=== PATIENT | male | born 1970 | race Two or more races ===

== ENCOUNTER 2021-02-22 11:18 | Inpatient (IN) | payer OTHER ==
[~2021-02-22] VITALS: Ht 182.9 cm; Wt 76.7 kg
--- NOTE | 2021-02-22 11:50 | NUR ---
BIB BY [facility] FROM HOME ([facility]). FOUND APNEIC/PULSELESS NAKED IN THE BATH TUB WITH . CPR INITIATED FOR 6 MINUTES UNTIL ROSC. NO NEURO FUNCTION APPRECIATED. BROUGHT TO [facility] WHERE HE WAS INTUBATED (THEY USED ETOMIDATE/DANA OUT OF HABIT-NO NEURO RESPONSE), HE WAS GIVEN 6 DOSES OF NARCAN WHICH IMPROVED APNEA (DID NOT IMPROVE NEURO FUNCTION). ON ARRIVAL NOT BREATHING OVER THE VENT (7.5/24 AT THE LIP), HR 73, 147/98 ZERO GAG OR CORNEAL REFLEX, TEMP OF 29.1. ERP TO BEDSIDE TO WARM BUT ONLY TO ARTIC PROTOCOL RANGE
--- NOTE | 2021-02-22 11:55 | NUR ---
KENAN HUGGER APPLIED FOR 29 DEGREES
--- NOTE | 2021-02-22 12:10 | NUR ---
ERP MADE AWARE OF CRITICAL PH/BASE EXCESS LEVEL/PAO2/FSBS
--- NOTE | 2021-02-22 12:40 | NUR ---
DR. FAULKNER TO BEDSIDE TO PROVIDE ORDERS. 2 AMP OF BICARB/1L OF NS ADMINISTERED IMMEDIATELY ARTIC SUN PADS APPLIED MACHINE PROVIDED WITH CCU
[2021-02-22] MEDS ORDERED: SODIUM BICARBONATE 1 MEQ/ML, 50ML VIAL ONE (12:50)
--- NOTE | 2021-02-22 13:26 | NUR ---
PATIENT BEING RE-WARMED VIA ARTIC SUN AT SLOW RATE LAB AT BEDSIDE FOR FULL SET OF LABS INCLUDING BLOOD CULTURES X2, URINE ANALYSIS
[2021-02-22] MEDS ORDERED: SODIUM BICARB 8.4%, 50ML SYRINGE IVPush ONE ×3 (13:30→16:00)
--- NOTE | 2021-02-22 13:34 | NUR ---
REPEAT NEURO EXAM (NO SEDATION AT ALL SINCE INTUBATION 4 HOURS AGO) NO GAG, NO CORNEAL REFLEX, FALCCID EXTREMITIES, UNREACTIVE 1MM PUPILS
[2021-02-22 13:40] LABS: MEAN CORPUSCULAR HEMOGLOBIN 34.6 pg (27.5-34.5); MEAN CORPUSCULAR HGB CONC 34.3 g/dL (33.2-36.2); MEAN PLATELET VOLUME 7.2 fL (7.4-10.4); PLATELET COUNT 302 x10^3/uL (130-400); RED BLOOD COUNT 5.48 x10^6/uL (4.38-5.82)
[2021-02-22 13:45] LABS: MICROSCOPIC INDICATED
[2021-02-22 13:51] LABS: AMPHETAMINE SCREEN, URINE Positive (Negative); BARBITURATE SCREEN, URINE Negative (Negative); BENZODIAZEPINE SCREEN, URINE Negative (Negative); CANNABINOID SCREEN, URINE Negative (Negative); COCAINE SCREEN, URINE Negative (Negative); METHADONE SCREEN, URINE Negative (Negative); OPIATE SCREEN, URINE Negative (Negative)
[2021-02-22] MEDS ORDERED: SODIUM CHLORIDE 0.9% 1,000ML IVBOLUS ONE ×2 (14:00→17:30)
--- NOTE | 2021-02-22 14:02 | NUR ---
TASK RN NOTE: PT BACK FROM IMAGING. BACK ON ALL MONITORS INCLUDING END TIDAL CO2. PT IS NSR ON SEGMENT BLOCK LAYER RATE 70'S WITH NO ECTOPY. SET UP COMPLETE FOR ART LINE AND CENTRAL LINE PER MD MUSTAFA'S INSTRUCTIONS.
--- NOTE | 2021-02-22 14:05 | NUR ---
TO CT (HEAD)
[2021-02-22 14:10] LABS: BAND#(MANUAL) 3.78 x10^3/uL; BANDS%(MANUAL) 22 % (0-7); LYMPH#(MANUAL) 0.69 x10^3/uL (1-3.4); LYMPHS% (MANUAL) 4 % (22-44); MONOS#(MANUAL) 0.69 x10^3/uL (0.3-2.7); MONOS% (MANUAL) 4 % (2-9); SEG#(MANUAL) 12.04 x10^3/uL (1.8-6.8); SEGS% (MANUAL) 70 % (42-75)
[2021-02-22 14:11] LABS: <PLATELET ESTIMATE> ADEQUATE; <PLT MORPHOLOGY> NORMAL PLT MORPH; ANISOCYTOSIS 1+
[2021-02-22 15:17] LABS: ALANINE AMINOTRANSFERASE 437 U/L (12-78); ALBUMIN 3.3 g/dL (3.4-5.0); ANION GAP 10 mmol/L (5-15); CALCIUM 7.1 mg/dL (8.5-10.1); CHLORIDE 108 mmol/L (98-107)
[2021-02-22 15:24] LABS: ALKALINE PHOSPHATASE 135 U/L (45-117); BILIRUBIN,TOTAL 0.9 mg/dL (0.2-1.0); CREATININE 2.21 mg/dL (0.7-1.3); TOTAL PROTEIN 7.6 g/dL (6.4-8.2)
--- NOTE | 2021-02-22 15:27 | NUR ---
MD MUSTAFA IN ROOM, PUT IN ART LINE AND CENTRAL LINE
[2021-02-22 15:30] LABS: TROPONIN I 0.159 ng/mL (0.000-0.045)
--- NOTE | 2021-02-22 15:53 | NUR ---
RECEIVED CALL FROM LAB FOR CRITICAL POTASSIUM OF 6.6. ERP MADE AWARE. EKG OBTAINED- TO ADMIN HYPERKALEMIA MEDS TEMP IMPROVED TO 33 DEGRESS CELCIUS-STABLE ON ARTIC SUN B/P DOWN TREANDING TO 90'S/50- BID MANAGER MADE AWARE- SHE WOULD LIKE TO HAVE LEVOPHED READY
[2021-02-22] MEDS ORDERED: DEXTROSE 50%, 50ML SYRINGE IVPush ONE (16:00)
[2021-02-22] MEDS ORDERED: INSULIN REGULAR 100 UNITS/ML, 3ML VIAL IVPush ONE (16:00)
[2021-02-22] MEDS ORDERED: CALCIUM CHLORIDE 10%, 10ML SYR IVPush ONE (16:00)
--- NOTE | 2021-02-22 16:03 | NUR ---
WITH SUCTIONING PATIENT NOW WITH GAG, MOVING EYES DR. FAULKNER MADE AWARE
[2021-02-22] MEDS ORDERED: SODIUM BICARB 8.4%, 50ML SYRINGE ONE (16:15)
[2021-02-22] MEDS ORDERED: INSULIN SINGLE DOSE, ER ONE (16:15)
[2021-02-22] MEDS ORDERED: PROPOFOL 100 ML IV ONE (16:15)
[2021-02-22] MEDS ORDERED: CALCIUM CHLORIDE 10%, 10ML SYR ONE (16:15)
[2021-02-22] MEDS ORDERED: DEXTROSE 50%, 50ML SYRINGE ONE (16:15)
[2021-02-22 16:20] LABS: ALBUMIN 3.1 g/dL (3.4-5.0); ANION GAP 7 mmol/L (5-15); CALCIUM 6.8 mg/dL (8.5-10.1); CHLORIDE 110 mmol/L (98-107); CREATININE 2.17 mg/dL (0.7-1.3)
[2021-02-22] MEDS: PROPOFOL 100 ML IV PRN (17:00)
[2021-02-22] MEDS: CEFTRIAXONE 1,000 MG in DEXTROSE 5% 50 ML IVPB SCH (17:00)
--- NOTE | 2021-02-22 17:07 | NUR ---
POST HYPERKALEMIA MED FSBS 191 PATIENT WITH LARGE LOOSE BM. FULL BED BATH AND LINEN CHANGE
[2021-02-22] MEDS ORDERED: SENNA/DOCUSATE TABLET NG PRN (18:00)
[2021-02-22] MEDS ORDERED: BISACODYL 10 MG SUPP PR PRN (18:00)
[2021-02-22] MEDS ORDERED: LACTULOSE 20 GM/30 ML UDC NG PRN (18:00)
[2021-02-22] MEDS ORDERED: PHARMACY MAY ADJ FOR RENAL FX MC SCH (18:00)
[2021-02-22] MEDS ORDERED: LIDOCAINE-MPF 1%, 2ML ENDO PRN (18:00)
[2021-02-22] MEDS ORDERED: SENNA 176 MG/5 ML ORAL SOL NG PRN (18:00)
[2021-02-22] MEDS ORDERED: GLUCAGON 1 MG IM PRN (18:00)
[2021-02-22] MEDS: HEPARIN 5,000 UNITS/ML, 1ML SQ SCH (18:29)
[2021-02-22] MEDS: METRONIDAZOLE PMX 500MG/100ML 100 ML IV SCH (18:29)
[2021-02-22] MEDS ORDERED: NOREPINEPHRINE 8 MG in SODIUM CHLORIDE 0.9% 242 ML IV PRN (18:30)
[2021-02-22 18:40] LABS: TRIGLYCERIDES 79 mg/dL (50-200)
[2021-02-22 18:43] LABS: TROPONIN I 0.325 ng/mL (0.000-0.045)
[2021-02-22] MEDS: SODIUM BICARBONATE 8.4% 150 MEQ in DEXTROSE 5% 1,000 ML IV SCH (18:44)
[2021-02-22 22:53] VITALS: BP 100/61
[2021-02-22 22:59] LABS: ANION GAP 8 mmol/L (5-15); CALCIUM 7.2 mg/dL (8.5-10.1); CHLORIDE 109 mmol/L (98-107); CREATININE 2.48 mg/dL (0.7-1.3)
[2021-02-23] MEDS: SODIUM BICARBONATE 8.4% 150 MEQ in DEXTROSE 5% 1,000 ML IV SCH ×4 (02:43→23:55)
[2021-02-23] MEDS: HEPARIN 5,000 UNITS/ML, 1ML SQ SCH ×3 (02:45→19:02)
[2021-02-23] MEDS: METRONIDAZOLE PMX 500MG/100ML 100 ML IV SCH ×3 (02:45→19:00)
[2021-02-23 03:37] LABS: BASOPHILS % (AUTO) 0 % (0-1); EOSINOPHILS % (AUTO) 0 % (1-7); LYMPHOCYTES % (AUTO) 6 % (22-44); MEAN PLATELET VOLUME 7.6 fL (7.4-10.4); MONOCYTES % (AUTO) 8 % (2-9); NEUTROPHILS % (AUTO) 86 % (42-75); PLATELET COUNT 261 x10^3/uL (130-400); RED BLOOD COUNT 5.11 x10^6/uL (4.38-5.82); RED CELL DISTRIBUTION WIDTH 13.1 % (9.4-14.8)
[2021-02-23 03:54] LABS: ALANINE AMINOTRANSFERASE 602 U/L (12-78); ALBUMIN 2.1 g/dL (3.4-5.0); ANION GAP 9 mmol/L (5-15); CALCIUM 6.9 mg/dL (8.5-10.1); CHLORIDE 109 mmol/L (98-107); CREATININE 3.25 mg/dL (0.7-1.3)
[2021-02-23 04:21] LABS: ALKALINE PHOSPHATASE 90 U/L (45-117); BILIRUBIN,TOTAL 0.4 mg/dL (0.2-1.0); TOTAL PROTEIN 5.5 g/dL (6.4-8.2)
[2021-02-23 05:08] LABS: CREATINE KINASE, TOTAL > 102000 U/L (39-308)
[2021-02-23] MEDS ORDERED: SODIUM CHLORIDE 0.9% 1,000ML IVBOLUS ONE (08:00)
[2021-02-23] MEDS ORDERED: FUROSEMIDE 100 MG/10 ML IV ONE (09:00)
[2021-02-23] MEDS: PANTOPRAZOLE 40 MG IV IVPush SCH (09:53)
[2021-02-23] MEDS ORDERED: FENTANYL PF 100 MCG/2ML IVPush ONE (10:30)
[2021-02-23] MEDS ORDERED: FENTANYL PF 100 MCG/2ML ONE (11:51)
[2021-02-23 14:01] LABS: ANION GAP 8 mmol/L (5-15); CALCIUM 6.8 mg/dL (8.5-10.1); CHLORIDE 105 mmol/L (98-107); CREATININE 4.32 mg/dL (0.7-1.3)
[2021-02-23] MEDS: CEFTRIAXONE 1,000 MG in DEXTROSE 5% 50 ML IVPB SCH (17:56)
[2021-02-23] MEDS ORDERED: FENTANYL PF 1,000 MCG in SODIUM CHLORIDE 0.9% 80 ML IV PRN (18:00)
[2021-02-23] MEDS: PROPOFOL 100 ML IV PRN (22:07)
[2021-02-24] MEDS: HEPARIN 5,000 UNITS/ML, 1ML SQ SCH ×3 (03:19→18:11)
[2021-02-24] MEDS: METRONIDAZOLE PMX 500MG/100ML 100 ML IV SCH ×3 (03:19→20:34)
[2021-02-24 04:44] LABS: MEAN CORPUSCULAR HEMOGLOBIN 33.7 pg (27.5-34.5); MEAN CORPUSCULAR HGB CONC 35.1 g/dL (33.2-36.2); MEAN PLATELET VOLUME 7.7 fL (7.4-10.4); PLATELET COUNT 177 x10^3/uL (130-400); RED BLOOD COUNT 4.12 x10^6/uL (4.38-5.82); RED CELL DISTRIBUTION WIDTH 13.2 % (9.4-14.8)
[2021-02-24 04:53] LABS: ANION GAP 7 mmol/L (5-15); CALCIUM 6.6 mg/dL (8.5-10.1); CHLORIDE 99 mmol/L (98-107); CREATININE 4.39 mg/dL (0.7-1.3)
[2021-02-24 05:49] LABS: ANISOCYTOSIS 1+; BAND#(MANUAL) 0.72 x10^3/uL; BANDS%(MANUAL) 7 % (0-7); LYMPH#(MANUAL) 1.34 x10^3/uL (1-3.4); LYMPHS% (MANUAL) 13 % (22-44); MONOS#(MANUAL) 0.72 x10^3/uL (0.3-2.7); MONOS% (MANUAL) 7 % (2-9); REACTIVE LYMPHS % (MANUAL) 1 % (0-0); SEG#(MANUAL) 7.42 x10^3/uL (1.8-6.8); SEGS% (MANUAL) 72 % (42-75)
[2021-02-24] MEDS: SODIUM BICARBONATE 8.4% 150 MEQ in DEXTROSE 5% 1,000 ML IV SCH ×2 (05:50→14:39)
[2021-02-24 05:54] LABS: <PLATELET ESTIMATE> ADEQUATE; <PLT MORPHOLOGY> NORMAL PLT MORPH
[2021-02-24] MEDS: PANTOPRAZOLE 40 MG IV IVPush SCH (08:52)
[2021-02-24] MEDS: FENTANYL PF 100 MCG/2ML IVPush PRN (08:53)
[2021-02-24] MEDS: PROPOFOL 100 ML IV PRN (11:18)
--- NOTE | 2021-02-24 11:58 | NUR ---
TF per RD, Vital HP goal 70ml/hr ON propofol, 80ml/hr OFF propofol Addendum: 02/24/21 at [address] Amended: Links added.
[2021-02-24] MEDS: CEFTRIAXONE 1,000 MG in DEXTROSE 5% 50 ML IVPB SCH (16:26)
[2021-02-25] MEDS: PROPOFOL 100 ML IV PRN ×5 (00:01→20:53)
[2021-02-25] MEDS: SODIUM BICARBONATE 8.4% 150 MEQ in DEXTROSE 5% 1,000 ML IV SCH ×2 (02:38→14:45)
[2021-02-25] MEDS: HEPARIN 5,000 UNITS/ML, 1ML SQ SCH ×3 (02:49→18:05)
[2021-02-25] MEDS: METRONIDAZOLE PMX 500MG/100ML 100 ML IV SCH ×3 (04:34→19:27)
[2021-02-25 05:49] LABS: BASOPHILS % (AUTO) 0 % (0-1); EOSINOPHILS % (AUTO) 0 % (1-7); LYMPHOCYTES % (AUTO) 11 % (22-44); MEAN CORPUSCULAR HEMOGLOBIN 34.1 pg (27.5-34.5); MEAN CORPUSCULAR HGB CONC 35.3 g/dL (33.2-36.2); MEAN PLATELET VOLUME 7.4 fL (7.4-10.4); MONOCYTES % (AUTO) 5 % (2-9); NEUTROPHILS % (AUTO) 84 % (42-75); PLATELET COUNT 161 x10^3/uL (130-400); RED BLOOD COUNT 3.76 x10^6/uL (4.38-5.82); RED CELL DISTRIBUTION WIDTH 13.2 % (9.4-14.8)
[2021-02-25 05:58] LABS: ANION GAP 8 mmol/L (5-15); CALCIUM 6.8 mg/dL (8.5-10.1); CHLORIDE 98 mmol/L (98-107); CREATININE 5.74 mg/dL (0.7-1.3); TRIGLYCERIDES 156 mg/dL (50-200)
[2021-02-25] MEDS: FENTANYL PF 100 MCG/2ML IVPush PRN ×2 (07:42→12:25)
[2021-02-25] MEDS: PANTOPRAZOLE 40 MG IV IVPush SCH (08:30)
[2021-02-25] MEDS: MIDAZOLAM HCL 50 MG in SODIUM CHLORIDE 0.9% 40 ML IV PRN (13:12)
[2021-02-25] MEDS: CEFTRIAXONE 1,000 MG in DEXTROSE 5% 50 ML IVPB SCH (16:48)
[2021-02-26] MEDS: MIDAZOLAM HCL 50 MG in SODIUM CHLORIDE 0.9% 40 ML IV PRN ×2 (00:17→12:47)
[2021-02-26] MEDS: PROPOFOL 100 ML IV PRN ×4 (01:31→17:39)
[2021-02-26] MEDS: SODIUM BICARBONATE 8.4% 150 MEQ in DEXTROSE 5% 1,000 ML IV SCH (02:16)
[2021-02-26] MEDS: HEPARIN 5,000 UNITS/ML, 1ML SQ SCH ×3 (02:24→17:40)
[2021-02-26] MEDS: METRONIDAZOLE PMX 500MG/100ML 100 ML IV SCH ×3 (04:03→19:38)
[2021-02-26 04:29] LABS: BASOPHILS % (AUTO) 1 % (0-1); EOSINOPHILS % (AUTO) 1 % (1-7); LYMPHOCYTES % (AUTO) 10 % (22-44); MEAN CORPUSCULAR HGB CONC 35.3 g/dL (33.2-36.2); MEAN PLATELET VOLUME 7.6 fL (7.4-10.4); MONOCYTES % (AUTO) 7 % (2-9); NEUTROPHILS % (AUTO) 82 % (42-75); PLATELET COUNT 167 x10^3/uL (130-400); RED BLOOD COUNT 3.97 x10^6/uL (4.38-5.82); RED CELL DISTRIBUTION WIDTH 13.2 % (9.4-14.8)
[2021-02-26 04:46] LABS: CHLORIDE 97 mmol/L (98-107)
[2021-02-26 04:52] LABS: ANION GAP 9 mmol/L (5-15); CALCIUM 7.4 mg/dL (8.5-10.1); CREATININE 5.68 mg/dL (0.7-1.3)
[2021-02-26] MEDS: PANTOPRAZOLE 40 MG IV IVPush SCH (08:38)
[2021-02-26 10:50] LABS: ALBUMIN 1.7 g/dL (3.4-5.0)
[2021-02-26 10:57] LABS: BILIRUBIN, DIRECT 0.3 mg/dL (0.1-0.2); BILIRUBIN,INDIRECT 0.3 mg/dL (0.0-2.0); BILIRUBIN,TOTAL 0.6 mg/dL (0.2-1.0); TOTAL PROTEIN 5.2 g/dL (6.4-8.2)
[2021-02-26] MEDS: SODIUM CHLORIDE 0.9% 1,000 ML IV SCH ×2 (11:42→21:42)
[2021-02-26] MEDS: CEFTRIAXONE 1,000 MG in DEXTROSE 5% 50 ML IVPB SCH (16:38)
[2021-02-26 22:55] LABS: CHLORIDE,URINE RANDOM 91 mmol/L; POTASSIUM,URINE RANDOM 18 mmol/L; SODIUM,URINE RANDOM 103 mmol/L
[2021-02-26 22:58] LABS: MICROSCOPIC INDICATED
[2021-02-26 23:01] LABS: CREATININE,URINE RANDOM 55.6 mg/dL
[2021-02-27] MEDS: HEPARIN 5,000 UNITS/ML, 1ML SQ SCH ×3 (02:04→17:56)
[2021-02-27] MEDS: PROPOFOL 100 ML IV PRN ×4 (02:04→22:57)
[2021-02-27] MEDS: MIDAZOLAM HCL 50 MG in SODIUM CHLORIDE 0.9% 40 ML IV PRN (03:34)
[2021-02-27] MEDS: METRONIDAZOLE PMX 500MG/100ML 100 ML IV SCH ×3 (03:34→19:46)
[2021-02-27 04:00] LABS: MEAN CORPUSCULAR HEMOGLOBIN 33.9 pg (27.5-34.5); MEAN CORPUSCULAR HGB CONC 34.7 g/dL (33.2-36.2); MEAN PLATELET VOLUME 7.8 fL (7.4-10.4); PLATELET COUNT 163 x10^3/uL (130-400); RED BLOOD COUNT 3.96 x10^6/uL (4.38-5.82); RED CELL DISTRIBUTION WIDTH 13.1 % (9.4-14.8)
[2021-02-27 04:08] LABS: ALBUMIN 1.3 g/dL (3.4-5.0); ANION GAP 8 mmol/L (5-15); CALCIUM 7.3 mg/dL (8.5-10.1); CHLORIDE 99 mmol/L (98-107)
[2021-02-27 04:25] LABS: BAND#(MANUAL) 1.82 x10^3/uL; BANDS%(MANUAL) 17 % (0-7); LYMPH#(MANUAL) 0.64 x10^3/uL (1-3.4); LYMPHS% (MANUAL) 6 % (22-44); METAMYELOCYTES# (MANUAL) 0.11 x10^3/uL (0-0); METAMYELOCYTES% (MANUAL) 1 % (0-1); MONOS#(MANUAL) 0.43 x10^3/uL (0.3-2.7); MONOS% (MANUAL) 4 % (2-9); SEGS% (MANUAL) 72 % (42-75)
[2021-02-27 04:26] LABS: <PLATELET ESTIMATE> ADEQUATE; <PLT MORPHOLOGY> NORMAL PLT MORPH; ANISOCYTOSIS 1+
[2021-02-27 04:49] LABS: % IRON SATURATION 22 % (20-55); ALANINE AMINOTRANSFERASE 336 U/L (12-78); ALKALINE PHOSPHATASE 86 U/L (45-117); BILIRUBIN,TOTAL 0.5 mg/dL (0.2-1.0); CREATININE 7.36 mg/dL (0.7-1.3); IRON LEVEL 31 mcg/dL (65-175); TOTAL IRON BINDING CAPACITY 143 mcg/dL (250-450)
[2021-02-27 05:08] LABS: CREATINE KINASE, TOTAL 24916 U/L (39-308)
[2021-02-27] MEDS: SODIUM CHLORIDE 0.9% 1,000 ML IV SCH ×3 (05:11→20:54)
[2021-02-27] MEDS: PANTOPRAZOLE 40 MG IV IVPush SCH (09:27)
[2021-02-27] MEDS: CEFTRIAXONE 1,000 MG in DEXTROSE 5% 50 ML IVPB SCH (16:44)
[2021-02-28] MEDS: HEPARIN 5,000 UNITS/ML, 1ML SQ SCH ×3 (01:52→18:37)
[2021-02-28] MEDS: PROPOFOL 100 ML IV PRN (01:54)
[2021-02-28] MEDS: SODIUM CHLORIDE 0.9% 1,000 ML IV SCH (02:42)
[2021-02-28] MEDS: METRONIDAZOLE PMX 500MG/100ML 100 ML IV SCH ×2 (03:42→11:37)
[2021-02-28 03:43] LABS: BASOPHILS % (AUTO) 0 % (0-1); EOSINOPHILS % (AUTO) 1 % (1-7); LYMPHOCYTES % (AUTO) 8 % (22-44); MEAN CORPUSCULAR HEMOGLOBIN 33.8 pg (27.5-34.5); MEAN CORPUSCULAR HGB CONC 34.7 g/dL (33.2-36.2); MONOCYTES % (AUTO) 10 % (2-9); NEUTROPHILS % (AUTO) 81 % (42-75); PLATELET COUNT 168 x10^3/uL (130-400); RED BLOOD COUNT 3.61 x10^6/uL (4.38-5.82); RED CELL DISTRIBUTION WIDTH 12.9 % (9.4-14.8)
[2021-02-28 03:48] LABS: ALANINE AMINOTRANSFERASE 319 U/L (12-78); ALBUMIN 1.4 g/dL (3.4-5.0); ANION GAP 9 mmol/L (5-15); CALCIUM 7.6 mg/dL (8.5-10.1); CHLORIDE 104 mmol/L (98-107); CREATININE 6.68 mg/dL (0.7-1.3)
[2021-02-28 03:51] LABS: ALKALINE PHOSPHATASE 125 U/L (45-117); BILIRUBIN,TOTAL 0.5 mg/dL (0.2-1.0); TOTAL PROTEIN 4.8 g/dL (6.4-8.2); TRIGLYCERIDES 249 mg/dL (50-200)
[2021-02-28] MEDS: MIDAZOLAM HCL 50 MG in SODIUM CHLORIDE 0.9% 40 ML IV PRN ×2 (04:25→12:14)
[2021-02-28] MEDS: FENTANYL PF 100 MCG/2ML IVPush PRN ×2 (05:46→10:19)
[2021-02-28] MEDS: PANTOPRAZOLE 40 MG IV IVPush SCH (09:03)
[2021-02-28] MEDS ORDERED: FUROSEMIDE 20 MG/2 ML ONE (10:27)
[2021-02-28] MEDS: FUROSEMIDE 40 MG/4 ML IV SCH ×2 (10:30→21:59)
[2021-02-28] MEDS ORDERED: PHARMACY MAY ADJ FOR RENAL FX MC PRN (18:00)
[2021-02-28] MEDS: PIPERACILLIN/TAZO 2.25 GM in DEXTROSE 5% 50 ML IV SCH (21:07)
[2021-02-28] MEDS: LINEZOLID PMX 600MG/300ML 300 ML IV SCH (21:59)
[2021-02-28] MEDS ORDERED: LORazepam 2 MG/ML, 1ML ONE (22:30)
[2021-02-28] MEDS ORDERED: LORazepam 2 MG/ML, 1ML IVPush ONE (22:30)
[2021-03-01] MEDS: HEPARIN 5,000 UNITS/ML, 1ML SQ SCH ×3 (04:07→20:26)
[2021-03-01] MEDS: PIPERACILLIN/TAZO 2.25 GM in DEXTROSE 5% 50 ML IV SCH ×2 (04:07→17:26)
[2021-03-01] MEDS: ACETAMINOPHEN 325 MG TABLET PO PRN (04:57)
[2021-03-01 05:30] LABS: MEAN CORPUSCULAR HEMOGLOBIN 33.5 pg (27.5-34.5); MEAN CORPUSCULAR HGB CONC 34.6 g/dL (33.2-36.2); MEAN PLATELET VOLUME 7.5 fL (7.4-10.4); PLATELET COUNT 187 x10^3/uL (130-400); RED BLOOD COUNT 3.58 x10^6/uL (4.38-5.82); RED CELL DISTRIBUTION WIDTH 12.6 % (9.4-14.8)
[2021-03-01 06:02] LABS: CHLORIDE 101 mmol/L (98-107)
[2021-03-01 06:05] LABS: BAND#(MANUAL) 0.49 x10^3/uL; BANDS%(MANUAL) 5 % (0-7); BASOS% (MANUAL) 1 % (0-1); LYMPH#(MANUAL) 0.39 x10^3/uL (1-3.4); LYMPHS% (MANUAL) 4 % (22-44); METAMYELOCYTES% (MANUAL) 1 % (0-1); MONOS#(MANUAL) 0.59 x10^3/uL (0.3-2.7); MONOS% (MANUAL) 6 % (2-9); REACTIVE LYMPHS % (MANUAL) 2 % (0-0); SEG#(MANUAL) 7.94 x10^3/uL (1.8-6.8); SEGS% (MANUAL) 81 % (42-75)
[2021-03-01 06:06] LABS: <PLATELET ESTIMATE> ADEQUATE; <PLT MORPHOLOGY> NORMAL PLT MORPH; <RBC MORPHOLOGY> NORMAL; TOXIC GRAN 1+
[2021-03-01 06:14] LABS: ALANINE AMINOTRANSFERASE 435 U/L (12-78); ALBUMIN 1.5 g/dL (3.4-5.0); ALKALINE PHOSPHATASE 112 U/L (45-117); ANION GAP 12 mmol/L (5-15); BILIRUBIN,TOTAL 0.7 mg/dL (0.2-1.0); CALCIUM 7.9 mg/dL (8.5-10.1); CREATININE 6.28 mg/dL (0.7-1.3); TOTAL PROTEIN 5.2 g/dL (6.4-8.2)
[2021-03-01] MEDS: ERGOCALCIFEROL 50,000 UNIT CAPSULE PO SCH (08:30)
[2021-03-01] MEDS: FUROSEMIDE 40 MG/4 ML IV SCH ×2 (08:34→20:26)
[2021-03-01] MEDS: LINEZOLID PMX 600MG/300ML 300 ML IV SCH ×2 (10:15→22:06)
[2021-03-01 11:30] VITALS: BP 134/88
[2021-03-01 19:54] VITALS: BP 129/80
[2021-03-02 00:42] VITALS: BP 115/68
[2021-03-02] MEDS: PIPERACILLIN/TAZO 2.25 GM in DEXTROSE 5% 50 ML IV SCH ×2 (01:29→09:27)
[2021-03-02] MEDS: HEPARIN 5,000 UNITS/ML, 1ML SQ SCH ×3 (04:17→22:46)
[2021-03-02 06:07] LABS: BASOPHILS % (AUTO) 0 % (0-1); EOSINOPHILS % (AUTO) 1 % (1-7); LYMPHOCYTES % (AUTO) 7 % (22-44); MEAN CORPUSCULAR HEMOGLOBIN 33.7 pg (27.5-34.5); MEAN CORPUSCULAR HGB CONC 35.1 g/dL (33.2-36.2); MONOCYTES % (AUTO) 9 % (2-9); NEUTROPHILS % (AUTO) 83 % (42-75); PLATELET COUNT 239 x10^3/uL (130-400); RED CELL DISTRIBUTION WIDTH 12.8 % (9.4-14.8)
[2021-03-02 06:19] LABS: CHLORIDE 100 mmol/L (98-107)
[2021-03-02 06:25] LABS: ALANINE AMINOTRANSFERASE 474 U/L (12-78); ALBUMIN 1.8 g/dL (3.4-5.0); ALKALINE PHOSPHATASE 109 U/L (45-117); ANION GAP 10 mmol/L (5-15); BILIRUBIN,TOTAL 0.7 mg/dL (0.2-1.0); CALCIUM 8.1 mg/dL (8.5-10.1); CREATININE 6.33 mg/dL (0.7-1.3); TOTAL PROTEIN 5.6 g/dL (6.4-8.2)
[2021-03-02] MEDS ORDERED: HYDROmorphone 2 MG/ML, 1ML ONE ×2 (06:37→23:02)
[2021-03-02 06:59] VITALS: BP 146/82
[2021-03-02] MEDS: FUROSEMIDE 40 MG/4 ML IV SCH ×2 (09:27→22:45)
[2021-03-02] MEDS: LINEZOLID PMX 600MG/300ML 300 ML IV SCH (10:39)
[2021-03-02 11:10] LABS: CLOSTRIDIUM DIFFICILE ANTIGEN NEGATIVE; CLOSTRIDIUM DIFFICILE TOXIN NEGATIVE (Negative)
[2021-03-02] MEDS: LOPERAMIDE 2 MG CAPSULE PO PRN (11:51)
[2021-03-02] MEDS: CEFAZOLIN 2,000 MG in DEXTROSE 5% 50 ML IV SCH ×2 (13:32→22:46)
[2021-03-02] MEDS: LORazepam 2 MG/ML, 1ML IVPush ONE ×2 (13:35→18:26)
[2021-03-02 13:55] VITALS: BP 138/78
[2021-03-02] MEDS: SEVELAMER CARBONATE 800MG TAB PO SCH (17:52)
[2021-03-02 18:50] VITALS: BP 132/71
[2021-03-02] MEDS: HYDROmorphone 1 MG/ML, 1ML INJ IV PRN (23:04)
[2021-03-02] MEDS: CLINDAMYCIN PMX 600MG/50ML 50 ML IV SCH (23:30)
[2021-03-03 00:32] VITALS: BP 129/81
[2021-03-03] MEDS ORDERED: HYDROmorphone 2 MG/ML, 1ML ONE ×2 (04:31→10:55)
[2021-03-03] MEDS: HYDROmorphone 1 MG/ML, 1ML INJ IV PRN (04:34)
[2021-03-03] MEDS: CEFAZOLIN 2,000 MG in DEXTROSE 5% 50 ML IV SCH ×2 (06:18→10:03)
[2021-03-03] MEDS: HEPARIN 5,000 UNITS/ML, 1ML SQ SCH ×2 (06:18→13:45)
[2021-03-03 06:46] VITALS: BP 116/74
[2021-03-03 06:55] LABS: MEAN CORPUSCULAR HEMOGLOBIN 33.4 pg (27.5-34.5); MEAN PLATELET VOLUME 7.8 fL (7.4-10.4); PLATELET COUNT 304 x10^3/uL (130-400); RED BLOOD COUNT 3.55 x10^6/uL (4.38-5.82); RED CELL DISTRIBUTION WIDTH 12.7 % (9.4-14.8)
[2021-03-03 06:58] LABS: ALANINE AMINOTRANSFERASE 346 U/L (12-78); ANION GAP 13 mmol/L (5-15); CALCIUM 8.4 mg/dL (8.5-10.1); CHLORIDE 104 mmol/L (98-107)
[2021-03-03 07:01] LABS: ALKALINE PHOSPHATASE 123 U/L (45-117); BILIRUBIN,TOTAL 0.5 mg/dL (0.2-1.0); TOTAL PROTEIN 5.7 g/dL (6.4-8.2)
[2021-03-03 07:35] LABS: BAND#(MANUAL) 1.12 x10^3/uL; BANDS%(MANUAL) 9 % (0-7); LYMPH#(MANUAL) 1.12 x10^3/uL (1-3.4); LYMPHS% (MANUAL) 9 % (22-44); MONOS#(MANUAL) 0.99 x10^3/uL (0.3-2.7); MONOS% (MANUAL) 8 % (2-9); MYELOCYTES# (MANUAL) 0.25 x10^3/uL (0-0); MYELOCYTES% (MANUAL) 2 % (0-0); SEG#(MANUAL) 8.93 x10^3/uL (1.8-6.8); SEGS% (MANUAL) 72 % (42-75)
[2021-03-03 07:37] LABS: <PLATELET ESTIMATE> ADEQUATE; <RBC MORPHOLOGY> NORMAL; LARGE PLATELETS 1+
[2021-03-03] MEDS: CLINDAMYCIN PMX 600MG/50ML 50 ML IV SCH ×2 (10:05→17:55)
[2021-03-03] MEDS: SEVELAMER CARBONATE 800MG TAB PO SCH ×3 (11:03→17:55)
[2021-03-03] MEDS: FUROSEMIDE 40 MG/4 ML IV SCH ×2 (11:04→20:02)
[2021-03-03] MEDS: HYDROmorphone 2 MG/ML, 1ML IV PRN ×3 (11:11→20:02)
[2021-03-03 12:30] VITALS: BP 106/65
[2021-03-03 20:00] VITALS: BP 136/90
[2021-03-03] MEDS: CEFAZOLIN 1,000 MG in DEXTROSE 5% 50 ML IV SCH (20:03)
[2021-03-04] MEDS: HEPARIN 5,000 UNITS/ML, 1ML SQ SCH ×4 (01:13→23:34)
[2021-03-04] MEDS: CLINDAMYCIN PMX 600MG/50ML 50 ML IV SCH ×2 (01:13→11:01)
[2021-03-04 01:58] VITALS: BP 115/67
[2021-03-04 04:06] LABS: MEAN CORPUSCULAR HEMOGLOBIN 33.6 pg (27.5-34.5); MEAN PLATELET VOLUME 7.5 fL (7.4-10.4); PLATELET COUNT 382 x10^3/uL (130-400); RED BLOOD COUNT 3.64 x10^6/uL (4.38-5.82); RED CELL DISTRIBUTION WIDTH 12.6 % (9.4-14.8)
[2021-03-04 04:14] LABS: CHLORIDE 102 mmol/L (98-107)
[2021-03-04 04:21] LABS: ALANINE AMINOTRANSFERASE 204 U/L (12-78); ALBUMIN 2.1 g/dL (3.4-5.0); ALKALINE PHOSPHATASE 144 U/L (45-117); ANION GAP 8 mmol/L (5-15); BILIRUBIN,TOTAL 0.5 mg/dL (0.2-1.0); CALCIUM 8.5 mg/dL (8.5-10.1); CREATININE 4.91 mg/dL (0.7-1.3); TOTAL PROTEIN 6.1 g/dL (6.4-8.2)
[2021-03-04 04:44] LABS: BAND#(MANUAL) 0.34 x10^3/uL; BANDS%(MANUAL) 3 % (0-7); EOS#(MANUAL) 0.11 x10^3/uL (0.0-0.4); EOS% (MANUAL) 1 % (1-7); LYMPH#(MANUAL) 0.56 x10^3/uL (1-3.4); LYMPHS% (MANUAL) 5 % (22-44); METAMYELOCYTES# (MANUAL) 0.11 x10^3/uL (0-0); METAMYELOCYTES% (MANUAL) 1 % (0-1); MONOS% (MANUAL) 8 % (2-9); MYELOCYTES# (MANUAL) 0.56 x10^3/uL (0-0); MYELOCYTES% (MANUAL) 5 % (0-0); SEG#(MANUAL) 8.62 x10^3/uL (1.8-6.8); SEGS% (MANUAL) 77 % (42-75)
[2021-03-04 04:45] LABS: <PLATELET ESTIMATE> ADEQUATE; LARGE PLATELETS 1+; PMNS WITH VACUOLES 1+; POLYCHROMASIA 1+
[2021-03-04] MEDS: HYDROmorphone 2 MG/ML, 1ML IV PRN ×3 (05:24→14:54)
[2021-03-04] MEDS: SEVELAMER CARBONATE 800MG TAB PO SCH ×3 (08:54→16:38)
[2021-03-04] MEDS: CEFAZOLIN 1,000 MG in DEXTROSE 5% 50 ML IV SCH ×2 (08:54→09:59)
[2021-03-04] MEDS: FUROSEMIDE 40 MG/4 ML IV SCH ×2 (08:55→21:21)
[2021-03-04 09:00] VITALS: BP 139/67
[2021-03-04] MEDS: LOPERAMIDE 2 MG CAPSULE PO PRN ×2 (11:02→19:31)
[2021-03-04] MEDS ORDERED: CEFAZOLIN PMX 1GM/50ML 50 ML IV SCH (13:00)
[2021-03-04 13:39] VITALS: BP 133/78
[2021-03-04] MEDS: ZIPRASIDONE 20 MG INJ IM PRN (19:31)
[2021-03-04 19:33] VITALS: BP 142/80
[2021-03-05 01:01] VITALS: BP 123/73
[2021-03-05] MEDS: HYDROmorphone 2 MG/ML, 1ML IV PRN (01:38)
[2021-03-05] MEDS: HEPARIN 5,000 UNITS/ML, 1ML SQ SCH ×4 (01:38→19:17)
[2021-03-05 05:31] LABS: MEAN CORPUSCULAR HEMOGLOBIN 33.6 pg (27.5-34.5); MEAN PLATELET VOLUME 7.4 fL (7.4-10.4); PLATELET COUNT 473 x10^3/uL (130-400); RED BLOOD COUNT 3.26 x10^6/uL (4.38-5.82); RED CELL DISTRIBUTION WIDTH 12.6 % (9.4-14.8)
[2021-03-05 06:13] LABS: <PLATELET ESTIMATE> INCREASED; <RBC MORPHOLOGY> NORMAL; BAND#(MANUAL) 0.36 x10^3/uL; BANDS%(MANUAL) 3 % (0-7); LYMPH#(MANUAL) 1.68 x10^3/uL (1-3.4); LYMPHS% (MANUAL) 14 % (22-44); METAMYELOCYTES# (MANUAL) 0.24 x10^3/uL (0-0); METAMYELOCYTES% (MANUAL) 2 % (0-1); MONOS#(MANUAL) 0.84 x10^3/uL (0.3-2.7); MONOS% (MANUAL) 7 % (2-9); SEG#(MANUAL) 8.88 x10^3/uL (1.8-6.8); SEGS% (MANUAL) 74 % (42-75)
[2021-03-05 06:14] LABS: LARGE PLATELETS 1+
[2021-03-05 06:18] LABS: HCT (SEDRATE) 31.3 % (39.2-51.8)
[2021-03-05 07:04] VITALS: BP 124/76
[2021-03-05] MEDS: SEVELAMER CARBONATE 800MG TAB PO SCH ×3 (08:00→17:15)
[2021-03-05] MEDS: FUROSEMIDE 40 MG/4 ML IV SCH ×2 (08:02→20:25)
[2021-03-05] MEDS: [UNRECOGNIZED DRUG - REMARK] MC SCH ×2 (12:00→19:57)
[2021-03-05 14:09] VITALS: BP 142/74
[2021-03-05 20:54] VITALS: BP 151/77
[2021-03-05] MEDS: ZIPRASIDONE 20 MG INJ IM PRN (22:45)
[2021-03-06 00:10] VITALS: BP 132/76
[2021-03-06] MEDS: [UNRECOGNIZED DRUG - REMARK] MC SCH (01:42)
[2021-03-06 05:52] LABS: BASOPHILS % (AUTO) 0 % (0-1); EOSINOPHILS % (AUTO) 2 % (1-7); LYMPHOCYTES % (AUTO) 8 % (22-44); MEAN CORPUSCULAR HEMOGLOBIN 33.7 pg (27.5-34.5); MEAN CORPUSCULAR HGB CONC 35.2 g/dL (33.2-36.2); MEAN PLATELET VOLUME 7.1 fL (7.4-10.4); MONOCYTES % (AUTO) 7 % (2-9); NEUTROPHILS % (AUTO) 83 % (42-75); PLATELET COUNT 574 x10^3/uL (130-400); RED BLOOD COUNT 3.06 x10^6/uL (4.38-5.82); RED CELL DISTRIBUTION WIDTH 12.5 % (9.4-14.8)
[2021-03-06 06:01] LABS: ALBUMIN 2.1 g/dL (3.4-5.0); ANION GAP 14 mmol/L (5-15); CALCIUM 7.6 mg/dL (8.5-10.1); CHLORIDE 101 mmol/L (98-107)
[2021-03-06 06:05] LABS: ALANINE AMINOTRANSFERASE 75 U/L (12-78); ALKALINE PHOSPHATASE 99 U/L (45-117); BILIRUBIN,TOTAL 0.5 mg/dL (0.2-1.0); CREATININE 8.86 mg/dL (0.7-1.3); TOTAL PROTEIN 5.7 g/dL (6.4-8.2)
[2021-03-06 06:52] VITALS: BP 136/70
[2021-03-06] MEDS: HEPARIN 5,000 UNITS/ML, 1ML SQ SCH ×2 (08:00→17:00)
[2021-03-06] MEDS: SEVELAMER CARBONATE 800MG TAB PO SCH ×3 (08:00→17:00)
[2021-03-06] MEDS: FUROSEMIDE 40 MG/4 ML IV SCH ×2 (08:55→20:44)
[2021-03-06] MEDS ORDERED: LIDOCAINE 1%, 20ML ONE (14:34)
[2021-03-06] MEDS ORDERED: MIDAZOLAM 1 MG/ML, 5ML ONE (15:11)
[2021-03-06] MEDS ORDERED: FLUMAZENIL 0.1 MG/1 ML, 5ML ONE (15:11)
[2021-03-06] MEDS ORDERED: NALOXONE 1 MG/ML, 2ML ONE (15:11)
[2021-03-06] MEDS ORDERED: FENTANYL PF 100 MCG/2ML ONE (15:11)
[2021-03-06 16:33] VITALS: BP 118/70
[2021-03-06 16:50] VITALS: BP 124/73
[2021-03-06] MEDS: CEFAZOLIN 2,000 MG in SODIUM CHLORIDE 0.9% 50 ML IV SCH (17:28)
[2021-03-06 20:06] VITALS: BP 106/58
[2021-03-07 00:32] VITALS: BP 133/82
[2021-03-07] MEDS: HEPARIN 5,000 UNITS/ML, 1ML SQ SCH ×3 (01:05→17:41)
[2021-03-07] MEDS: HYDROmorphone 2 MG/ML, 1ML IV PRN ×3 (01:08→20:47)
[2021-03-07 06:17] LABS: MEAN CORPUSCULAR HEMOGLOBIN 33.6 pg (27.5-34.5); MEAN CORPUSCULAR HGB CONC 34.9 g/dL (33.2-36.2); MEAN PLATELET VOLUME 6.8 fL (7.4-10.4); PLATELET COUNT 627 x10^3/uL (130-400); RED BLOOD COUNT 3.19 x10^6/uL (4.38-5.82); RED CELL DISTRIBUTION WIDTH 12.8 % (9.4-14.8)
[2021-03-07 06:27] LABS: CHLORIDE 101 mmol/L (98-107)
[2021-03-07 06:40] LABS: <RBC MORPHOLOGY> NORMAL; BAND#(MANUAL) 0.22 x10^3/uL; BANDS%(MANUAL) 2 % (0-7); BASOS#(MANUAL) 0.11 x10^3/uL (0-0.1); BASOS% (MANUAL) 1 % (0-1); EOS#(MANUAL) 0.44 x10^3/uL (0.0-0.4); EOS% (MANUAL) 4 % (1-7); LYMPH#(MANUAL) 1.11 x10^3/uL (1-3.4); LYMPHS% (MANUAL) 10 % (22-44); METAMYELOCYTES# (MANUAL) 0.22 x10^3/uL (0-0); METAMYELOCYTES% (MANUAL) 2 % (0-1); MONOS#(MANUAL) 1.22 x10^3/uL (0.3-2.7); MONOS% (MANUAL) 11 % (2-9); SEG#(MANUAL) 7.77 x10^3/uL (1.8-6.8); SEGS% (MANUAL) 70 % (42-75)
[2021-03-07 06:41] LABS: <PLATELET ESTIMATE> INCREASED; SMALL PLATELETS 1+
[2021-03-07 06:49] LABS: ALANINE AMINOTRANSFERASE 70 U/L (12-78); ALBUMIN 2.2 g/dL (3.4-5.0); ALKALINE PHOSPHATASE 92 U/L (45-117); ANION GAP 12 mmol/L (5-15); BILIRUBIN,TOTAL 0.4 mg/dL (0.2-1.0); CALCIUM 7.7 mg/dL (8.5-10.1); CREATINE KINASE, TOTAL 5241 U/L (39-308); CREATININE 7.17 mg/dL (0.7-1.3)
[2021-03-07 07:22] VITALS: BP 123/72
[2021-03-07] MEDS: SEVELAMER CARBONATE 800MG TAB PO SCH ×3 (08:18→17:42)
[2021-03-07] MEDS: FUROSEMIDE 40 MG/4 ML IV SCH ×2 (10:33→20:18)
[2021-03-07 14:39] VITALS: BP 122/73
[2021-03-07 19:11] VITALS: BP 119/64
[2021-03-08 00:30] VITALS: BP 114/65
[2021-03-08] MEDS: HEPARIN 5,000 UNITS/ML, 1ML SQ SCH ×3 (01:18→20:54)
[2021-03-08] MEDS: HYDROmorphone 2 MG/ML, 1ML IV PRN ×3 (02:55→21:15)
[2021-03-08 06:52] LABS: BASOPHILS % (AUTO) 1 % (0-1); EOSINOPHILS % (AUTO) 2 % (1-7); LYMPHOCYTES % (AUTO) 12 % (22-44); MEAN CORPUSCULAR HEMOGLOBIN 34.3 pg (27.5-34.5); MEAN CORPUSCULAR HGB CONC 35.8 g/dL (33.2-36.2); MEAN PLATELET VOLUME 6.4 fL (7.4-10.4); MONOCYTES % (AUTO) 15 % (2-9); NEUTROPHILS % (AUTO) 71 % (42-75); PLATELET COUNT 675 x10^3/uL (130-400); RED BLOOD COUNT 3.06 x10^6/uL (4.38-5.82); RED CELL DISTRIBUTION WIDTH 12.7 % (9.4-14.8)
[2021-03-08 07:04] LABS: ALBUMIN 2.3 g/dL (3.4-5.0); ANION GAP 14 mmol/L (5-15); CALCIUM 7.7 mg/dL (8.5-10.1); CHLORIDE 100 mmol/L (98-107); CREATININE 8.88 mg/dL (0.7-1.3)
[2021-03-08 07:42] VITALS: BP 125/73
[2021-03-08] MEDS: SEVELAMER CARBONATE 800MG TAB PO SCH ×3 (08:00→17:44)
[2021-03-08] MEDS: FUROSEMIDE 40 MG/4 ML IV SCH ×2 (09:00→20:54)
[2021-03-08 13:15] VITALS: BP 104/61
[2021-03-08] MEDS: ERGOCALCIFEROL 50,000 UNIT CAPSULE PO SCH (13:25)
[2021-03-08 18:49] VITALS: BP 157/15
[2021-03-08] MEDS: CEFAZOLIN 2,000 MG in SODIUM CHLORIDE 0.9% 50 ML IV SCH (19:28)
[2021-03-09 00:41] VITALS: BP 115/64
[2021-03-09] MEDS: HYDROmorphone 2 MG/ML, 1ML IV PRN ×2 (01:37→17:14)
[2021-03-09 06:06] LABS: BASOPHILS % (AUTO) 1 % (0-1); EOSINOPHILS % (AUTO) 2 % (1-7); LYMPHOCYTES % (AUTO) 16 % (22-44); MEAN CORPUSCULAR HEMOGLOBIN 33.8 pg (27.5-34.5); MEAN CORPUSCULAR HGB CONC 35.3 g/dL (33.2-36.2); MEAN PLATELET VOLUME 6.6 fL (7.4-10.4); MONOCYTES % (AUTO) 18 % (2-9); NEUTROPHILS % (AUTO) 64 % (42-75); PLATELET COUNT 579 x10^3/uL (130-400); RED BLOOD COUNT 3.07 x10^6/uL (4.38-5.82); RED CELL DISTRIBUTION WIDTH 12.6 % (9.4-14.8)
[2021-03-09 06:12] LABS: ALBUMIN 2.2 g/dL (3.4-5.0); ANION GAP 11 mmol/L (5-15); CALCIUM 8.2 mg/dL (8.5-10.1); CHLORIDE 99 mmol/L (98-107)
[2021-03-09] MEDS: HEPARIN 5,000 UNITS/ML, 1ML SQ SCH ×3 (06:17→20:56)
[2021-03-09 06:34] LABS: CREATINE KINASE, TOTAL 4382 U/L (39-308); CREATININE 6.79 mg/dL (0.7-1.3)
[2021-03-09 07:50] VITALS: BP 132/72
[2021-03-09] MEDS: SEVELAMER CARBONATE 800MG TAB PO SCH ×3 (08:42→17:15)
[2021-03-09] MEDS: FUROSEMIDE 40 MG/4 ML IV SCH (08:57)
[2021-03-09 14:20] VITALS: BP 117/63
[2021-03-09 19:52] VITALS: BP 100/61
[2021-03-09] MEDS: ZIPRASIDONE 20 MG INJ IM PRN (22:26)
[2021-03-10 00:51] VITALS: BP 100/60
[2021-03-10 05:09] LABS: BASOPHILS % (AUTO) 1 % (0-1); EOSINOPHILS % (AUTO) 2 % (1-7); LYMPHOCYTES % (AUTO) 15 % (22-44); MEAN CORPUSCULAR HEMOGLOBIN 34.3 pg (27.5-34.5); MEAN CORPUSCULAR HGB CONC 35.9 g/dL (33.2-36.2); MEAN PLATELET VOLUME 6.3 fL (7.4-10.4); MONOCYTES % (AUTO) 14 % (2-9); NEUTROPHILS % (AUTO) 68 % (42-75); PLATELET COUNT 591 x10^3/uL (130-400); RED BLOOD COUNT 3.12 x10^6/uL (4.38-5.82); RED CELL DISTRIBUTION WIDTH 12.5 % (9.4-14.8)
[2021-03-10 05:19] LABS: ALBUMIN 2.4 g/dL (3.4-5.0); ANION GAP 11 mmol/L (5-15); CHLORIDE 102 mmol/L (98-107)
[2021-03-10 05:38] LABS: CREATINE KINASE, TOTAL 4727 U/L (39-308); CREATININE 7.76 mg/dL (0.7-1.3)
[2021-03-10] MEDS: HEPARIN 5,000 UNITS/ML, 1ML SQ SCH ×3 (05:43→19:54)
[2021-03-10 07:45] VITALS: BP 118/68
[2021-03-10] MEDS: SEVELAMER CARBONATE 800MG TAB PO SCH ×3 (09:39→19:55)
[2021-03-10] MEDS: FUROSEMIDE 80 MG TABLET PO SCH (09:39)
[2021-03-10 14:00] VITALS: BP 135/75
[2021-03-10] MEDS: CEFAZOLIN 3,000 MG in SODIUM CHLORIDE 0.9% 100 ML IV SCH (19:54)
[2021-03-10 19:55] VITALS: BP 115/68
[2021-03-10] MEDS: HYDROmorphone 2 MG/ML, 1ML IV PRN (22:44)
[2021-03-11 03:00] VITALS: BP 107/64
[2021-03-11] MEDS: HEPARIN 5,000 UNITS/ML, 1ML SQ SCH ×2 (05:41→16:15)
[2021-03-11] MEDS: HYDROmorphone 2 MG/ML, 1ML IV PRN ×3 (05:42→18:00)
[2021-03-11 06:45] LABS: BASOPHILS % (AUTO) 1 % (0-1); EOSINOPHILS % (AUTO) 1 % (1-7); MONOCYTES % (AUTO) 13 % (2-9); NEUTROPHILS % (AUTO) 72 % (42-75)
[2021-03-11 06:48] LABS: ANION GAP 9 mmol/L (5-15); CALCIUM 8.3 mg/dL (8.5-10.1); CHLORIDE 101 mmol/L (98-107); CREATININE 5.87 mg/dL (0.7-1.3)
[2021-03-11 07:00] LABS: LYMPHOCYTES % (AUTO) 12 % (22-44); MEAN CORPUSCULAR HEMOGLOBIN 33.6 pg (27.5-34.5); MEAN CORPUSCULAR HGB CONC 35.3 g/dL (33.2-36.2); MEAN PLATELET VOLUME 6.2 fL (7.4-10.4); PLATELET COUNT 526 x10^3/uL (130-400); RED BLOOD COUNT 3.02 x10^6/uL (4.38-5.82); RED CELL DISTRIBUTION WIDTH 12.5 % (9.4-14.8)
[2021-03-11 08:03] VITALS: BP 116/69
[2021-03-11] MEDS: SEVELAMER CARBONATE 800MG TAB PO SCH ×3 (08:16→16:15)
[2021-03-11] MEDS: FUROSEMIDE 80 MG TABLET PO SCH (10:42)
[2021-03-11 13:07] VITALS: BP 122/75
[2021-03-11] MEDS: OXYcodone/APAP 7.5/325MG TABLET PO PRN (16:15)
[2021-03-11 19:54] VITALS: BP 117/72
[2021-03-11] MEDS: MELATONIN 5 MG TABLET PO SCH (22:10)
[2021-03-11] MEDS: DIPHENHYDRAMINE 25 MG CAPSULE PO PRN (22:10)
[2021-03-12] MEDS: OXYcodone/APAP 7.5/325MG TABLET PO PRN ×5 (00:02→23:57)
[2021-03-12] MEDS: HEPARIN 5,000 UNITS/ML, 1ML SQ SCH ×4 (00:02→23:57)
[2021-03-12 01:09] VITALS: BP 100/66
[2021-03-12 06:19] LABS: CHLORIDE 100 mmol/L (98-107)
[2021-03-12 06:37] LABS: ALANINE AMINOTRANSFERASE 50 U/L (12-78); ALBUMIN 2.5 g/dL (3.4-5.0); ALKALINE PHOSPHATASE 85 U/L (45-117); ANION GAP 10 mmol/L (5-15); BILIRUBIN,TOTAL 0.4 mg/dL (0.2-1.0); CALCIUM 8.4 mg/dL (8.5-10.1); CREATININE 6.14 mg/dL (0.7-1.3); TOTAL PROTEIN 6.6 g/dL (6.4-8.2)
[2021-03-12 06:39] LABS: BASOPHILS % (AUTO) 1 % (0-1); EOSINOPHILS % (AUTO) 2 % (1-7); LYMPHOCYTES % (AUTO) 17 % (22-44); MEAN CORPUSCULAR HEMOGLOBIN 33.9 pg (27.5-34.5); MEAN CORPUSCULAR HGB CONC 35.6 g/dL (33.2-36.2); MEAN PLATELET VOLUME 6.4 fL (7.4-10.4); MONOCYTES % (AUTO) 11 % (2-9); NEUTROPHILS % (AUTO) 69 % (42-75); PLATELET COUNT 526 x10^3/uL (130-400); RED BLOOD COUNT 2.96 x10^6/uL (4.38-5.82); RED CELL DISTRIBUTION WIDTH 12.3 % (9.4-14.8)
[2021-03-12 06:44] LABS: HCT (SEDRATE) 28.2 % (39.2-51.8)
[2021-03-12 06:55] VITALS: BP 100/54
[2021-03-12] MEDS: SEVELAMER CARBONATE 800MG TAB PO SCH ×3 (09:10→16:29)
[2021-03-12] MEDS: FUROSEMIDE 80 MG TABLET PO SCH (09:10)
[2021-03-12 12:57] VITALS: BP 117/69
[2021-03-12 19:34] VITALS: BP 106/67
[2021-03-12] MEDS: MELATONIN 5 MG TABLET PO SCH (20:09)
[2021-03-12] MEDS: DIPHENHYDRAMINE 25 MG CAPSULE PO PRN (20:10)
[2021-03-13 00:11] VITALS: BP 109/68
[2021-03-13] MEDS: ACETAMINOPHEN 325 MG TABLET PO PRN (02:41)
[2021-03-13] MEDS: OXYcodone/APAP 7.5/325MG TABLET PO PRN ×3 (06:58→19:15)
[2021-03-13 07:08] LABS: BASOPHILS % (AUTO) 1 % (0-1); EOSINOPHILS % (AUTO) 2 % (1-7); LYMPHOCYTES % (AUTO) 20 % (22-44); MEAN CORPUSCULAR HEMOGLOBIN 33.5 pg (27.5-34.5); MEAN PLATELET VOLUME 6.1 fL (7.4-10.4); MONOCYTES % (AUTO) 11 % (2-9); NEUTROPHILS % (AUTO) 67 % (42-75); PLATELET COUNT 504 x10^3/uL (130-400); RED BLOOD COUNT 2.91 x10^6/uL (4.38-5.82); RED CELL DISTRIBUTION WIDTH 12.2 % (9.4-14.8)
[2021-03-13 07:15] VITALS: BP 110/67
[2021-03-13 07:20] LABS: ANION GAP 10 mmol/L (5-15); CALCIUM 8.5 mg/dL (8.5-10.1); CHLORIDE 101 mmol/L (98-107)
[2021-03-13 07:21] LABS: CREATININE 6.21 mg/dL (0.7-1.3)
[2021-03-13] MEDS: HEPARIN 5,000 UNITS/ML, 1ML SQ SCH ×2 (10:57→16:00)
[2021-03-13] MEDS: FUROSEMIDE 80 MG TABLET PO SCH (10:57)
[2021-03-13] MEDS: SEVELAMER CARBONATE 800MG TAB PO SCH ×4 (10:57→18:38)
[2021-03-13 13:33] VITALS: BP 112/69
[2021-03-13] MEDS: CEFAZOLIN PMX 2GM/50ML 50 ML IVPB SCH (18:39)
[2021-03-13] MEDS: MELATONIN 5 MG TABLET PO SCH (19:14)
[2021-03-13 19:54] VITALS: BP 100/62
[2021-03-14] MEDS: HEPARIN 5,000 UNITS/ML, 1ML SQ SCH ×4 (00:45→23:12)
[2021-03-14] MEDS: OXYcodone/APAP 7.5/325MG TABLET PO PRN ×4 (00:47→23:11)
[2021-03-14 01:19] VITALS: BP 99/67
[2021-03-14] MEDS: DIPHENHYDRAMINE 25 MG CAPSULE PO PRN ×2 (04:02→19:54)
[2021-03-14 06:12] LABS: BASOPHILS % (AUTO) 1 % (0-1); EOSINOPHILS % (AUTO) 2 % (1-7); LYMPHOCYTES % (AUTO) 20 % (22-44); MEAN CORPUSCULAR HGB CONC 35.3 g/dL (33.2-36.2); MEAN PLATELET VOLUME 6.5 fL (7.4-10.4); MONOCYTES % (AUTO) 13 % (2-9); NEUTROPHILS % (AUTO) 65 % (42-75); PLATELET COUNT 433 x10^3/uL (130-400); RED BLOOD COUNT 2.96 x10^6/uL (4.38-5.82); RED CELL DISTRIBUTION WIDTH 12.2 % (9.4-14.8)
[2021-03-14 06:26] LABS: ALBUMIN 2.5 g/dL (3.4-5.0); ANION GAP 6 mmol/L (5-15); CALCIUM 8.9 mg/dL (8.5-10.1); CHLORIDE 99 mmol/L (98-107)
[2021-03-14 06:27] LABS: CREATININE 4.48 mg/dL (0.7-1.3)
[2021-03-14 07:22] VITALS: BP 105/65
[2021-03-14] MEDS: FUROSEMIDE 80 MG TABLET PO SCH (10:06)
[2021-03-14] MEDS: SEVELAMER CARBONATE 800MG TAB PO SCH ×3 (10:07→17:33)
[2021-03-14 18:20] VITALS: BP 113/72
[2021-03-14] MEDS: ACETAMINOPHEN 325 MG TABLET PO PRN (19:53)
[2021-03-14] MEDS: MELATONIN 5 MG TABLET PO SCH (19:54)
[2021-03-14 23:17] VITALS: BP 109/63
[2021-03-15 05:43] LABS: BASOPHILS % (AUTO) 1 % (0-1); EOSINOPHILS % (AUTO) 2 % (1-7); LYMPHOCYTES % (AUTO) 23 % (22-44); MEAN CORPUSCULAR HEMOGLOBIN 33.7 pg (27.5-34.5); MEAN CORPUSCULAR HGB CONC 35.2 g/dL (33.2-36.2); MEAN PLATELET VOLUME 6.3 fL (7.4-10.4); MONOCYTES % (AUTO) 13 % (2-9); NEUTROPHILS % (AUTO) 62 % (42-75); PLATELET COUNT 444 x10^3/uL (130-400); RED BLOOD COUNT 2.96 x10^6/uL (4.38-5.82); RED CELL DISTRIBUTION WIDTH 12.2 % (9.4-14.8)
[2021-03-15 05:45] LABS: ALBUMIN 2.5 g/dL (3.4-5.0); ANION GAP 7 mmol/L (5-15); CALCIUM 9.2 mg/dL (8.5-10.1); CHLORIDE 99 mmol/L (98-107)
[2021-03-15 05:47] LABS: CREATININE 4.68 mg/dL (0.7-1.3)
[2021-03-15 07:07] VITALS: BP 113/72
[2021-03-15] MEDS: HEPARIN 5,000 UNITS/ML, 1ML SQ SCH ×2 (07:27→16:49)
[2021-03-15] MEDS: ERGOCALCIFEROL 50,000 UNIT CAPSULE PO SCH (08:37)
[2021-03-15] MEDS: SEVELAMER CARBONATE 800MG TAB PO SCH ×3 (08:37→16:49)
[2021-03-15] MEDS: OXYcodone/APAP 7.5/325MG TABLET PO PRN ×2 (08:37→16:49)
[2021-03-15] MEDS: FUROSEMIDE 80 MG TABLET PO SCH (08:37)
[2021-03-15] MEDS ORDERED: CHLORHEXIDINE 15 ML UDC ONE (09:58)
[2021-03-15] MEDS ORDERED: CHLORHEXIDINE 15 ML UDC PO ONE (10:30)
[2021-03-15] MEDS ORDERED: FENTANYL PF 250 MCG/5ML ONE (10:35)
[2021-03-15] MEDS ORDERED: hydrALAzine 20 MG/ML, 1ML IV PRN (11:00)
[2021-03-15] MEDS ORDERED: PROMETHAZINE 25 MG/ML, 1ML IVPush PRN (11:00)
[2021-03-15] MEDS ORDERED: ONDANSETRON 2MG/ML, 2ML IVPush PRN (11:00)
[2021-03-15] MEDS ORDERED: LABETALOL 5MG/ML, 20ML IV PRN (11:00)
[2021-03-15] MEDS ORDERED: OXYcodone 5 MG/5 ML ORAL.SOL UDC PO PRN (11:00)
[2021-03-15] MEDS ORDERED: FENTANYL PF 100 MCG/2ML IV PRN (11:00)
[2021-03-15] MEDS ORDERED: PROPOFOL 10 MG/ML, 20ML ONE (12:21)
[2021-03-15] MEDS ORDERED: CEFAZOLIN 1,000 MG ONE ×2 (12:46→13:02)
[2021-03-15] MEDS ORDERED: EPHEDRINE 50 MG/ML, 1ML ONE (12:50)
[2021-03-15] MEDS ORDERED: DEXAMETHASONE 4 MG/ML, 1ML ONE (13:02)
[2021-03-15] MEDS ORDERED: VANCOMYCIN 1,000 MG ONE (13:20)
[2021-03-15] MEDS ORDERED: ONDANSETRON 2MG/ML, 2ML ONE (13:46)
[2021-03-15] MEDS ORDERED: MEPERIDINE/PF 25MG/ML,1ML ONE (14:09)
[2021-03-15] MEDS ORDERED: HYDROmorphone 2 MG/ML, 1ML ONE ×2 (14:10→17:09)
[2021-03-15] MEDS ORDERED: OXYcodone 5 MG/5 ML ORAL.SOL UDC ONE (14:10)
[2021-03-15] MEDS: HYDROmorphone 1 MG/ML, 1ML INJ IVPush PRN ×4 (14:15→14:30)
[2021-03-15] MEDS ORDERED: MIDAZOLAM 1 MG/ML, 2ML ONE (14:20)
[2021-03-15] MEDS ORDERED: MIDAZOLAM 1 MG/ML, 2ML IV PRN (14:30)
[2021-03-15] MEDS ORDERED: MEPERIDINE/PF 25MG/0.5ML IVPush PRN (15:00)
[2021-03-15] MEDS ORDERED: FENTANYL PF 100 MCG/2ML ONE (15:03)
[2021-03-15] MEDS: CEFAZOLIN PMX 2GM/50ML 50 ML IVPB SCH (16:51)
[2021-03-15] MEDS ORDERED: HYDROmorphone 1 MG/ML, 1ML INJ IV ONE (17:30)
[2021-03-15] MEDS ORDERED: HYDROmorphone PCA 30 MG/30 ML IV PRN ×2 (17:30→23:30)
[2021-03-15 20:22] VITALS: BP 108/68
[2021-03-15] MEDS: MELATONIN 5 MG TABLET PO SCH (21:00)
[2021-03-16] MEDS ORDERED: HYDROmorphone PCA 30 MG/30 ML IV PRN
[2021-03-16 00:06] VITALS: BP 91/52
[2021-03-16] MEDS: HEPARIN 5,000 UNITS/ML, 1ML SQ SCH ×3 (01:48→17:20)
[2021-03-16 04:08] VITALS: BP 122/72
[2021-03-16 05:46] LABS: BASOPHILS % (AUTO) 1 % (0-1); EOSINOPHILS % (AUTO) 1 % (1-7); LYMPHOCYTES % (AUTO) 11 % (22-44); MEAN CORPUSCULAR HEMOGLOBIN 34.3 pg (27.5-34.5); MEAN CORPUSCULAR HGB CONC 35.3 g/dL (33.2-36.2); MEAN PLATELET VOLUME 6.4 fL (7.4-10.4); MONOCYTES % (AUTO) 15 % (2-9); NEUTROPHILS % (AUTO) 73 % (42-75); PLATELET COUNT 409 x10^3/uL (130-400); RED BLOOD COUNT 2.58 x10^6/uL (4.38-5.82)
[2021-03-16 05:57] LABS: ALANINE AMINOTRANSFERASE 38 U/L (12-78); ALBUMIN 2.8 g/dL (3.4-5.0); ANION GAP 7 mmol/L (5-15); CALCIUM 8.6 mg/dL (8.5-10.1); CHLORIDE 101 mmol/L (98-107); CREATININE 4.28 mg/dL (0.7-1.3)
[2021-03-16 06:00] LABS: ALKALINE PHOSPHATASE 91 U/L (45-117); BILIRUBIN,TOTAL 0.3 mg/dL (0.2-1.0); TOTAL PROTEIN 7.3 g/dL (6.4-8.2)
[2021-03-16 07:06] VITALS: BP 106/71
[2021-03-16] MEDS: DIPHENHYDRAMINE 25 MG CAPSULE PO PRN (07:26)
[2021-03-16] MEDS: FUROSEMIDE 80 MG TABLET PO SCH (07:59)
[2021-03-16] MEDS: SEVELAMER CARBONATE 800MG TAB PO SCH ×3 (07:59→17:20)
[2021-03-16 13:37] VITALS: BP 115/67
[2021-03-16] MEDS: HYDROmorphone PCA 30 MG/30 ML IV PRN (13:55)
[2021-03-16 18:35] VITALS: BP 102/63
[2021-03-16] MEDS: MELATONIN 5 MG TABLET PO SCH (21:07)
[2021-03-17] MEDS: HEPARIN 5,000 UNITS/ML, 1ML SQ SCH ×3 (01:00→17:20)
[2021-03-17 05:59] LABS: BASOPHILS % (AUTO) 1 % (0-1); EOSINOPHILS % (AUTO) 1 % (1-7); LYMPHOCYTES % (AUTO) 8 % (22-44); MEAN CORPUSCULAR HEMOGLOBIN 34.2 pg (27.5-34.5); MEAN CORPUSCULAR HGB CONC 35.6 g/dL (33.2-36.2); MEAN PLATELET VOLUME 6.5 fL (7.4-10.4); MONOCYTES % (AUTO) 13 % (2-9); NEUTROPHILS % (AUTO) 77 % (42-75); PLATELET COUNT 351 x10^3/uL (130-400); RED BLOOD COUNT 2.65 x10^6/uL (4.38-5.82)
[2021-03-17 06:07] LABS: ALBUMIN 2.8 g/dL (3.4-5.0); ANION GAP 5 mmol/L (5-15); CALCIUM 9.1 mg/dL (8.5-10.1); CHLORIDE 99 mmol/L (98-107)
[2021-03-17 06:16] LABS: ALANINE AMINOTRANSFERASE 36 U/L (12-78); ALKALINE PHOSPHATASE 100 U/L (45-117); BILIRUBIN,TOTAL 0.3 mg/dL (0.2-1.0); CREATININE 3.97 mg/dL (0.7-1.3); TOTAL PROTEIN 7.3 g/dL (6.4-8.2)
[2021-03-17 06:47] VITALS: BP 104/62
[2021-03-17] MEDS: SEVELAMER CARBONATE 800MG TAB PO SCH ×3 (08:09→17:20)
[2021-03-17] MEDS: FUROSEMIDE 80 MG TABLET PO SCH (08:09)
[2021-03-17] MEDS: HYDROmorphone PCA 30 MG/30 ML IV PRN (14:04)
[2021-03-17] MEDS: ACETAMINOPHEN 325 MG TABLET PO PRN ×2 (14:21→20:39)
[2021-03-17 15:11] VITALS: BP 107/64
[2021-03-17] MEDS: CEFAZOLIN 3,000 MG in SODIUM CHLORIDE 0.9% 100 ML IV SCH (17:39)
[2021-03-17 18:41] VITALS: BP 113/73
[2021-03-17] MEDS: DIPHENHYDRAMINE 25 MG CAPSULE PO PRN (19:45)
[2021-03-17] MEDS: MELATONIN 5 MG TABLET PO SCH (20:37)
[2021-03-18 00:15] VITALS: BP 103/65
[2021-03-18] MEDS ORDERED: DIPHENHYDRAMINE 25 MG CAPSULE PO PRN (01:30)
[2021-03-18] MEDS: HEPARIN 5,000 UNITS/ML, 1ML SQ SCH ×3 (01:31→17:19)
[2021-03-18] MEDS: DIPHENHYDRAMINE 25 MG CAPSULE PO PRN ×2 (01:46→11:30)
[2021-03-18] MEDS: ACETAMINOPHEN 325 MG TABLET PO PRN ×3 (05:51→20:19)
[2021-03-18 06:03] LABS: BASOPHILS % (AUTO) 1 % (0-1); EOSINOPHILS % (AUTO) 2 % (1-7); LYMPHOCYTES % (AUTO) 12 % (22-44); MEAN CORPUSCULAR HEMOGLOBIN 34.2 pg (27.5-34.5); MEAN CORPUSCULAR HGB CONC 35.7 g/dL (33.2-36.2); MEAN PLATELET VOLUME 6.9 fL (7.4-10.4); MONOCYTES % (AUTO) 14 % (2-9); NEUTROPHILS % (AUTO) 71 % (42-75); PLATELET COUNT 352 x10^3/uL (130-400); RED BLOOD COUNT 2.63 x10^6/uL (4.38-5.82); RED CELL DISTRIBUTION WIDTH 11.8 % (9.4-14.8)
[2021-03-18 06:16] LABS: ALBUMIN 2.6 g/dL (3.4-5.0); CHLORIDE 101 mmol/L (98-107)
[2021-03-18 06:21] LABS: ALANINE AMINOTRANSFERASE 29 U/L (12-78); ALKALINE PHOSPHATASE 120 U/L (45-117); ANION GAP 7 mmol/L (5-15); BILIRUBIN,TOTAL 0.3 mg/dL (0.2-1.0); CALCIUM 8.8 mg/dL (8.5-10.1); CREATINE KINASE, TOTAL 713 U/L (39-308); CREATININE 3.24 mg/dL (0.7-1.3); TOTAL PROTEIN 7.4 g/dL (6.4-8.2)
[2021-03-18 08:00] VITALS: BP 110/71
[2021-03-18] MEDS: SEVELAMER CARBONATE 800MG TAB PO SCH ×3 (09:20→17:20)
[2021-03-18] MEDS: FUROSEMIDE 80 MG TABLET PO SCH (09:20)
[2021-03-18] MEDS ORDERED: DIPHENHYDRAMINE 25 MG CAPSULE ONE (10:41)
[2021-03-18] MEDS: HYDROmorphone PCA 30 MG/30 ML IV PRN (13:28)
[2021-03-18 15:30] VITALS: BP 108/67
[2021-03-18 16:33] VITALS: BP 114/68
[2021-03-18] MEDS: MELATONIN 5 MG TABLET PO SCH (20:19)
[2021-03-18 20:59] VITALS: BP 108/65
[2021-03-19 00:51] VITALS: BP 104/68
[2021-03-19] MEDS: DIPHENHYDRAMINE 25 MG CAPSULE PO PRN ×2 (01:06→22:50)
[2021-03-19] MEDS: HEPARIN 5,000 UNITS/ML, 1ML SQ SCH ×3 (01:06→17:24)
[2021-03-19 06:45] LABS: BASOPHILS % (AUTO) 1 % (0-1); EOSINOPHILS % (AUTO) 3 % (1-7); LYMPHOCYTES % (AUTO) 14 % (22-44); MEAN CORPUSCULAR HEMOGLOBIN 34.9 pg (27.5-34.5); MEAN CORPUSCULAR HGB CONC 36.2 g/dL (33.2-36.2); MEAN PLATELET VOLUME 6.8 fL (7.4-10.4); MONOCYTES % (AUTO) 13 % (2-9); NEUTROPHILS % (AUTO) 70 % (42-75); PLATELET COUNT 411 x10^3/uL (130-400); RED CELL DISTRIBUTION WIDTH 12.1 % (9.4-14.8)
[2021-03-19 06:48] LABS: HCT (SEDRATE) 25.6 % (39.2-51.8)
[2021-03-19 06:56] LABS: ALANINE AMINOTRANSFERASE 28 U/L (12-78); ALBUMIN 2.6 g/dL (3.4-5.0); ANION GAP 8 mmol/L (5-15); CALCIUM 8.6 mg/dL (8.5-10.1); CHLORIDE 102 mmol/L (98-107); CREATININE 2.88 mg/dL (0.7-1.3)
[2021-03-19 07:03] LABS: ALKALINE PHOSPHATASE 128 U/L (45-117); BILIRUBIN,TOTAL 0.5 mg/dL (0.2-1.0); TOTAL PROTEIN 7.6 g/dL (6.4-8.2)
[2021-03-19 07:42] LABS: SEDIMENTATION RATE > 120 mm/hr (0-10)
[2021-03-19 07:52] VITALS: BP 116/71
[2021-03-19] MEDS: SEVELAMER CARBONATE 800MG TAB PO SCH ×3 (07:54→17:24)
[2021-03-19] MEDS: FUROSEMIDE 80 MG TABLET PO SCH (07:55)
[2021-03-19] MEDS: ZIPRASIDONE 20 MG INJ IM PRN (11:16)
[2021-03-19] MEDS: HYDROmorphone PCA 30 MG/30 ML IV PRN (12:31)
[2021-03-19 14:24] VITALS: BP 112/64
[2021-03-19] MEDS ORDERED: MORPHINE SULFATE 4 MG/ML, 1ML IVPush PRN (15:30)
[2021-03-19] MEDS ORDERED: HYDROmorphone 1 MG/ML, 1ML INJ IV PRN (15:30)
[2021-03-19] MEDS: OXYcodone/APAP 10/325MG TABLET PO PRN (17:25)
[2021-03-19] MEDS ORDERED: HYDROmorphone 2 MG/ML, 1ML ONE (19:17)
[2021-03-19 19:27] VITALS: BP 111/72
[2021-03-19] MEDS: MELATONIN 5 MG TABLET PO SCH (20:18)
[2021-03-19] MEDS ORDERED: HYDROmorphone 2 MG/ML, 1ML IV PRN (21:46)
[2021-03-19] MEDS: ACETAMINOPHEN 325 MG TABLET PO PRN (21:47)
[2021-03-20 00:44] VITALS: BP 106/58
[2021-03-20] MEDS: OXYcodone/APAP 10/325MG TABLET PO PRN ×5 (01:03→19:46)
[2021-03-20] MEDS: HEPARIN 5,000 UNITS/ML, 1ML SQ SCH ×3 (01:03→16:57)
[2021-03-20 05:45] LABS: BASOPHILS % (AUTO) 1 % (0-1); EOSINOPHILS % (AUTO) 3 % (1-7); LYMPHOCYTES % (AUTO) 16 % (22-44); MEAN CORPUSCULAR HEMOGLOBIN 33.2 pg (27.5-34.5); MEAN CORPUSCULAR HGB CONC 34.7 g/dL (33.2-36.2); MEAN PLATELET VOLUME 6.7 fL (7.4-10.4); MONOCYTES % (AUTO) 13 % (2-9); NEUTROPHILS % (AUTO) 67 % (42-75); PLATELET COUNT 401 x10^3/uL (130-400); RED BLOOD COUNT 2.51 x10^6/uL (4.38-5.82); RED CELL DISTRIBUTION WIDTH 12.1 % (9.4-14.8)
[2021-03-20 05:47] LABS: ALBUMIN 2.4 g/dL (3.4-5.0); ANION GAP 8 mmol/L (5-15); CALCIUM 8.7 mg/dL (8.5-10.1); CHLORIDE 107 mmol/L (98-107)
[2021-03-20 05:52] LABS: ALANINE AMINOTRANSFERASE 24 U/L (12-78); ALKALINE PHOSPHATASE 110 U/L (45-117); BILIRUBIN,TOTAL 0.3 mg/dL (0.2-1.0); CREATININE 2.47 mg/dL (0.7-1.3); TOTAL PROTEIN 6.9 g/dL (6.4-8.2)
[2021-03-20 07:27] VITALS: BP 116/70
[2021-03-20] MEDS: SEVELAMER CARBONATE 800MG TAB PO SCH ×3 (08:30→16:57)
[2021-03-20] MEDS: FUROSEMIDE 80 MG TABLET PO SCH (08:30)
[2021-03-20] MEDS ORDERED: CEFAZOLIN 2,000 MG in SODIUM CHLORIDE 0.9% 50 ML IV SCH (12:00)
[2021-03-20 12:23] VITALS: BP 123/81
[2021-03-20] MEDS ORDERED: MORPHINE SULFATE 4 MG/ML, 1ML IVPush PRN (15:30)
[2021-03-20 19:44] VITALS: BP 121/77
[2021-03-20] MEDS: MELATONIN 5 MG TABLET PO SCH (19:47)
[2021-03-20 20:26] VITALS: BP_SYST 126; BP_SYST 142; BP_DIAS 78
[2021-03-20] MEDS: DIPHENHYDRAMINE 25 MG CAPSULE PO PRN (22:07)
[2021-03-21 00:02] VITALS: BP 119/74
[2021-03-21] MEDS: HEPARIN 5,000 UNITS/ML, 1ML SQ SCH ×3 (01:17→16:23)
[2021-03-21] MEDS: OXYcodone/APAP 10/325MG TABLET PO PRN ×3 (01:32→18:15)
[2021-03-21 05:34] LABS: CHLORIDE 106 mmol/L (98-107)
[2021-03-21 05:46] LABS: ANION GAP 6 mmol/L (5-15); CALCIUM 9.2 mg/dL (8.5-10.1); CREATININE 2.28 mg/dL (0.7-1.3)
[2021-03-21 08:00] VITALS: BP 122/84
[2021-03-21] MEDS: FUROSEMIDE 80 MG TABLET PO SCH (08:55)
[2021-03-21] MEDS: SEVELAMER CARBONATE 800MG TAB PO SCH ×3 (08:55→16:22)
[2021-03-21] MEDS ORDERED: CEFAZOLIN PMX 2GM/50ML 50 ML IVPB SCH ×2 (12:00)
[2021-03-21 13:56] VITALS: BP 117/73
[2021-03-21] MEDS ORDERED: LIDOCAINE 1%, 10ML ONE (15:21)
[2021-03-21 19:40] VITALS: BP 127/76
[2021-03-21] MEDS: MELATONIN 5 MG TABLET PO SCH (20:13)
[2021-03-21] MEDS: CEPHALEXIN 500 MG CAPSULE PO SCH (20:13)
[2021-03-22] MEDS: DIPHENHYDRAMINE 25 MG CAPSULE PO PRN ×2 (00:03→19:35)
[2021-03-22] MEDS: HEPARIN 5,000 UNITS/ML, 1ML SQ SCH ×3 (00:03→17:59)
[2021-03-22 00:21] VITALS: BP 104/64
[2021-03-22] MEDS: OXYcodone/APAP 10/325MG TABLET PO PRN ×3 (02:08→19:35)
[2021-03-22 06:26] LABS: ALBUMIN 2.5 g/dL (3.4-5.0); ANION GAP 6 mmol/L (5-15); CALCIUM 8.5 mg/dL (8.5-10.1); CHLORIDE 104 mmol/L (98-107); CREATININE 1.85 mg/dL (0.7-1.3)
[2021-03-22] MEDS: ERGOCALCIFEROL 50,000 UNIT CAPSULE PO SCH (06:37)
[2021-03-22 07:58] VITALS: BP 118/74
[2021-03-22] MEDS: SEVELAMER CARBONATE 800MG TAB PO SCH (08:40)
[2021-03-22] MEDS: FUROSEMIDE 80 MG TABLET PO SCH (08:40)
[2021-03-22] MEDS: CEPHALEXIN 500 MG CAPSULE PO SCH ×2 (08:41→21:28)
[2021-03-22] MEDS ORDERED: CEPH-376 PO (10:51)
[2021-03-22] MEDS ORDERED: FURO80TA3 PO (10:51)
[2021-03-22] MEDS ORDERED: ACET325T26 PO (10:51)
[2021-03-22 13:43] VITALS: BP 118/72
[2021-03-22 18:56] VITALS: BP 123/79
[2021-03-22] MEDS: MELATONIN 5 MG TABLET PO SCH (21:00)
[2021-03-23 01:23] VITALS: BP 114/78
[2021-03-23] MEDS: HEPARIN 5,000 UNITS/ML, 1ML SQ SCH ×2 (01:47→09:02)
[2021-03-23] MEDS: OXYcodone/APAP 10/325MG TABLET PO PRN (01:47)
[2021-03-23 07:58] VITALS: BP 125/75
[2021-03-23] MEDS: CEPHALEXIN 500 MG CAPSULE PO SCH (09:03)
[2021-03-23] MEDS: FUROSEMIDE 80 MG TABLET PO SCH (09:03)
== END 2021-03-23 11:38 | DRG 853 ==
LOC: EDBD 12:23 → ED 12:23 → SUATTDRO 12:58 → MERGE 12:58 → EDIP 12:58 → CCU 17:48 → 4EST 03-01 10:57 → 3N 03-06 11:52
PROVIDERS: ADMIT Internal Medicine; ATTEND Hospitalist
PROC: 5A1955Z Respiratory Ventilation, Greater than 96 Consecutive Hours (ICD-10-PCS; principal; 2021-02-22)
PROC: 0BH17EZ Insertion of Endotracheal Airway into Trachea, Via Natural or Artificial Opening (ICD-10-PCS; 2021-02-22)
PROC: 0T9B70Z Drainage of Bladder with Drainage Device, Via Natural or Artificial Opening (ICD-10-PCS; 2021-02-22)
PROC: 5A12012 Performance of Cardiac Output, Single, Manual (ICD-10-PCS; 2021-02-22)
PROC: 02HV33Z Insertion of Infusion Device into Superior Vena Cava, Percutaneous Approach (ICD-10-PCS; 2021-02-22)
PROC: B543ZZA Ultrasonography of Right Jugular Veins, Guidance (ICD-10-PCS; 2021-02-22)
PROC: 04HK33Z Insertion of Infusion Device into Right Femoral Artery, Percutaneous Approach (ICD-10-PCS; 2021-02-22)
PROC: 5A1D70Z Performance of Urinary Filtration, Intermittent, Less than 6 Hours Per Day (ICD-10-PCS; 2021-02-23)
PROC: 5A1D70Z Performance of Urinary Filtration, Intermittent, Less than 6 Hours Per Day (ICD-10-PCS; 2021-02-24)
PROC: 5A1D70Z Performance of Urinary Filtration, Intermittent, Less than 6 Hours Per Day (ICD-10-PCS; 2021-02-27)
PROC: 5A1D70Z Performance of Urinary Filtration, Intermittent, Less than 6 Hours Per Day (ICD-10-PCS; 2021-02-28)
PROC: 0JH63XZ Insertion of Tunneled Vascular Access Device into Chest Subcutaneous Tissue and Fascia, Percutaneous Approach (ICD-10-PCS; 2021-03-06)
PROC: 02HV33Z Insertion of Infusion Device into Superior Vena Cava, Percutaneous Approach (ICD-10-PCS; 2021-03-06)
PROC: B518ZZA Fluoroscopy of Superior Vena Cava, Guidance (ICD-10-PCS; 2021-03-06)
PROC: B543ZZA Ultrasonography of Right Jugular Veins, Guidance (ICD-10-PCS; 2021-03-06)
PROC: 5A1D70Z Performance of Urinary Filtration, Intermittent, Less than 6 Hours Per Day (ICD-10-PCS; 2021-03-08)
PROC: 5A1D70Z Performance of Urinary Filtration, Intermittent, Less than 6 Hours Per Day (ICD-10-PCS; 2021-03-10)
PROC: 5A1D70Z Performance of Urinary Filtration, Intermittent, Less than 6 Hours Per Day (ICD-10-PCS; 2021-03-13)
PROC: 5A1D70Z Performance of Urinary Filtration, Intermittent, Less than 6 Hours Per Day (ICD-10-PCS; 2021-03-13)
PROC: 0Y6H0Z1 Detachment at Right Lower Leg, High, Open Approach (ICD-10-PCS; 2021-03-15)
PROC: 5A1D70Z Performance of Urinary Filtration, Intermittent, Less than 6 Hours Per Day (ICD-10-PCS; 2021-03-15)
DX: A41.9 Sepsis, unspecified organism (principal); G92 Toxic encephalopathy; I46.9 Cardiac arrest, cause unspecified; I63.9 Cerebral infarction, unspecified; J69.0 Pneumonitis due to inhalation of food and vomit; J96.01 Acute respiratory failure with hypoxia; K72.00 Acute and subacute hepatic failure without coma; N17.0 Acute kidney failure with tubular necrosis; E87.1 Hypo-osmolality and hyponatremia; E87.2 Acidosis; L03.115 Cellulitis of right lower limb; M62.82 Rhabdomyolysis; N25.81 Secondary hyperparathyroidism of renal origin; Z99.11 Dependence on respirator [ventilator] status; T79.A21A Traumatic compartment syndrome of right lower extremity, initial encounter; D64.9 Anemia, unspecified; D75.89 Other specified diseases of blood and blood-forming organs; E55.9 Vitamin D deficiency, unspecified; E83.39 Other disorders of phosphorus metabolism; E83.51 Hypocalcemia; E87.5 Hyperkalemia; I45.10 Unspecified right bundle-branch block; K80.20 Calculus of gallbladder without cholecystitis without obstruction; D75.1 Secondary polycythemia; F19.10 Other psychoactive substance abuse, uncomplicated; T40.2X1A Poisoning by other opioids, accidental (unintentional), initial encounter; Z20.822 Contact with and (suspected) exposure to COVID-19; Z99.2 Dependence on renal dialysis; Y93.89 Activity, other specified; Y92.89 Other specified places as the place of occurrence of the external cause; Y99.8 Other external cause status
CPT/HCPCS: 36415; 36556; 36600; 77001; 87046; 89055; 96374; 96375; 96376; 99291; J3490; 36558; 36565; 36589; 70450; 70551; 71045; 76700; 76937; 80048; 80053; 80069; 80076; 80307; 81001; 82040; 82306; 82330; 82436; 82550; 82570; 82607; 82728; 82803; 82962; 83540; 83550; 83605; 83735; 83880; 83970; 84100; 84133; 84156; 84300; 84443; 84478; 84484; 84550; 85025; 85651; 86140; 86480; 86705; 86706; 87040; 87070; 87075; 87081; 87205; 87324; 87340; 87635; 88307; 90935; 93005; 93306; 93308; 93880; 94002; 94003; 99156; 99157; G0378; J0690; J0696; J1100; J1170; J1644; J1940; J2020; J2175; J2250; J2405; J2543; J2704; J3010; J3370; J3486; J7070; U0005; 92523-GN; C1750; C9113; J1642; J1815; J2060; J2310; J7030; Q0163; U0003